=== PATIENT | female | born 1935 | race Caucasian/White ===

== ENCOUNTER → 2019-10-21 | Outpatient (CLI) | payer MEDICARE, BC | LOC: LAB 08:33 | DX: E11.9 Type 2 diabetes mellitus without complications (principal); I10 Essential (primary) hypertension; M54.9 Dorsalgia, unspecified; G89.29 Other chronic pain; R60.0 Localized edema ==

== ENCOUNTER → 2019-10-25 | Outpatient (CLI) | payer MEDICARE, BC | LOC: RAD 14:34 | DX: K56.41 Fecal impaction (principal); E11.9 Type 2 diabetes mellitus without complications; M79.641 Pain in right hand; R60.0 Localized edema ==

== ENCOUNTER → 2020-07-16 | Outpatient (CLI) | payer MEDICARE, BC ==
[2020-07-16 12:48] LABS: ALBUMIN 4.9 g/dL (3.4-4.8); POTASSIUM 4.5 mmol/L (3.5-5.1)
[2020-07-16 12:50] LABS: TOTAL PROTEIN 9.3 g/dL (6.2-8.1)
[2020-07-16 12:52] LABS: TOTAL BILIRUBIN 1.5 mg/dL (0.2-1.2)
== END ==
LOC: LAB 11:51
PROVIDERS: Family Medicine
DX: E11.9 Type 2 diabetes mellitus without complications (principal); R60.0 Localized edema; I10 Essential (primary) hypertension; E78.00 Pure hypercholesterolemia, unspecified

== ENCOUNTER → 2020-08-10 | Outpatient (CLI) | payer MEDICARE, BC | LOC: RAD 12:48 | DX: M51.36 Other intervertebral disc degeneration, lumbar region (principal); M47.816 Spondylosis without myelopathy or radiculopathy, lumbar region; M25.552 Pain in left hip ==

== ENCOUNTER → 2021-02-10 | Outpatient (CLI) | payer MEDICARE, BC | LOC: LAB 13:22 | DX: N39.0 Urinary tract infection, site not specified (principal) ==

== ENCOUNTER → 2021-02-12 | Outpatient (CLI) | payer MEDICARE, BC ==
[2021-02-12 15:08] LABS: URINE COLOR YELLOW
[2021-02-12 15:09] LABS: URINE APPEARANCE CLEAR
[2021-02-12 15:10] LABS: URINE BILIRUBIN NEGATIVE (NEGATIVE); URINE BLOOD TRACE (NEGATIVE); URINE GLUCOSE NEGATIVE (NEGATIVE); URINE KETONE NEGATIVE (NEGATIVE); URINE LEUKOCYTE ESTERASE TRACE (NEGATIVE); URINE MUCUS PRESENT (NOT PRESENT); URINE NITRATE NEGATIVE (NEGATIVE); URINE PROTEIN(semi-quant) TRACE mg/dL (NEGATIVE); URINE UROBILINOGEN NORMAL (NORMAL)
== END ==
LOC: LAB 14:12
PROVIDERS: Family Medicine
DX: N39.0 Urinary tract infection, site not specified (principal)

== ENCOUNTER → 2021-02-17 | Outpatient (CLI) | payer MEDICARE, BC ==
[2021-02-17 09:26] LABS: POTASSIUM 4.2 mmol/L (3.5-5.1)
[2021-02-17 09:27] LABS: ALBUMIN 4.1 g/dL (3.4-4.8)
[2021-02-17 09:28] LABS: CALCIUM 9.7 mg/dL (8.3-10.5)
[2021-02-17 09:29] LABS: TOTAL PROTEIN 7.6 g/dL (6.2-8.1)
[2021-02-17 09:31] LABS: TOTAL BILIRUBIN 1.4 mg/dL (0.2-1.2)
[2021-02-17 09:37] LABS: URINE APPEARANCE CLOUDY; URINE BILIRUBIN NEGATIVE (NEGATIVE); URINE COLOR YELLOW; URINE GLUCOSE NEGATIVE (NEGATIVE); URINE KETONE NEGATIVE (NEGATIVE); URINE PROTEIN(semi-quant) 2+ mg/dL (NEGATIVE)
[2021-02-17 09:38] LABS: URINE BLOOD 50 ery/uL (NEGATIVE); URINE LEUKOCYTE ESTERASE TRACE (NEGATIVE); URINE MUCUS PRESENT (NOT PRESENT); URINE NITRATE NEGATIVE (NEGATIVE); URINE UROBILINOGEN NORMAL (NORMAL)
== END ==
LOC: LAB 08:58
PROVIDERS: Family Medicine
DX: E11.9 Type 2 diabetes mellitus without complications (principal)

== ENCOUNTER → 2021-03-02 | Outpatient (CLI) | payer MEDICARE, BC | LOC: RAD 08:42 | DX: N18.31 Chronic kidney disease, stage 3a (principal); N20.0 Calculus of kidney; N28.1 Cyst of kidney, acquired ==

== ENCOUNTER → 2021-04-26 | Outpatient (CLI) | payer MEDICARE, BC ==
[2021-04-26 10:57] LABS: POTASSIUM 4.2 mmol/L (3.5-5.1)
[2021-04-26 10:58] LABS: CALCIUM 9.9 mg/dL (8.3-10.5)
[2021-04-26 11:05] LABS: URINE WBC >50 /hpf (0-3)
== END ==
LOC: LAB 10:13
PROVIDERS: Family Medicine
DX: N39.0 Urinary tract infection, site not specified (principal)

== ENCOUNTER → 2021-05-03 | Outpatient (CLI) | payer MEDICARE, BC ==
[2021-05-03 16:20] LABS: POTASSIUM 4.3 mmol/L (3.5-5.1)
[2021-05-03 16:52] LABS: URINE APPEARANCE HAZY; URINE BILIRUBIN 1+ (NEGATIVE); URINE BLOOD TRACE (NEGATIVE); URINE COLOR YELLOW; URINE GLUCOSE NEGATIVE (NEGATIVE); URINE KETONE NEGATIVE (NEGATIVE); URINE LEUKOCYTE ESTERASE TRACE (NEGATIVE); URINE MUCUS PRESENT (NOT PRESENT); URINE NITRATE POSITIVE (NEGATIVE); URINE PROTEIN(semi-quant) TRACE mg/dL (NEGATIVE); URINE UROBILINOGEN NORMAL (NORMAL)
== END ==
LOC: LAB 15:57
PROVIDERS: Family Medicine
DX: E11.22 Type 2 diabetes mellitus with diabetic chronic kidney disease (principal); N18.2 Chronic kidney disease, stage 2 (mild); N39.0 Urinary tract infection, site not specified

== ENCOUNTER → 2021-07-26 | Outpatient (CLI) | payer MEDICARE, BC ==
[2021-07-26 09:24] LABS: ALBUMIN 4.1 g/dL (3.4-4.8); POTASSIUM 3.9 mmol/L (3.5-5.1)
[2021-07-26 09:25] LABS: CALCIUM 10.3 mg/dL (8.3-10.5)
[2021-07-26 09:26] LABS: TOTAL PROTEIN 8.3 g/dL (6.2-8.1)
[2021-07-26 09:37] LABS: URINE APPEARANCE CLOUDY; URINE COLOR YELLOW
[2021-07-26 09:38] LABS: URINE BILIRUBIN NEGATIVE (NEGATIVE); URINE BLOOD TRACE (NEGATIVE); URINE GLUCOSE NEGATIVE (NEGATIVE); URINE KETONE NEGATIVE (NEGATIVE); URINE LEUKOCYTE ESTERASE 1+ (NEGATIVE); URINE MUCUS PRESENT (NOT PRESENT); URINE NITRATE POSITIVE (NEGATIVE); URINE PROTEIN(semi-quant) 1+ mg/dL (NEGATIVE); URINE UROBILINOGEN NORMAL (NORMAL); URINE WBC 31-50 /hpf (0-3)
== END ==
LOC: LAB 07:59
PROVIDERS: Family Medicine
DX: E11.22 Type 2 diabetes mellitus with diabetic chronic kidney disease (principal); N18.2 Chronic kidney disease, stage 2 (mild); N39.0 Urinary tract infection, site not specified

== ENCOUNTER → 2021-07-29 | Outpatient (CLI) | payer MEDICARE, BC ==
[2021-07-29 17:16] LABS: BASO # 0.11 K/mm3 (0.02-0.10); EOS # 0.29 K/mm3 (0.04-0.40); EOS % 2.6 % (1.0-5.0); HEMATOCRIT 46.3 % (37.0-47.0); HEMOGLOBIN 14.9 g/dL (12.5-16.0); LYMPH# 3.09 K/mm3 (1.50-4.00); MEAN CELL VOLUME 97 fl (78-100); MEAN CORPUSCULAR HEMOGLOBIN 31 pg (27-31); MEAN CORPUSCULAR HGB CONC 32 g/dL (33-37); MEAN PLATELET VOLUME 9.2 fl (7.4-10.4); MONO # 0.85 K/mm3 (0.20-0.80); NEU # 6.78 K/mm3 (1.40-6.50); PLATELET COUNT 307 K/mm3 (130-400); RED BLOOD COUNT 4.77 M/mm3 (4.10-5.30); RED CELL DISTRIBUTION WIDTH 12.5 % (11.5-14.5); WHITE BLOOD COUNT 11.1 K/mm3 (4.8-10.8)
== END ==
LOC: LAB 17:02
PROVIDERS: Family Medicine
DX: R22.9 Localized swelling, mass and lump, unspecified (principal)

== ENCOUNTER → 2021-08-19 | Outpatient (CLI) | payer MEDICARE, BC | LOC: LAB 12:37 | DX: N39.0 Urinary tract infection, site not specified (principal); R07.9 Chest pain, unspecified ==

== ENCOUNTER 2021-08-31 10:29 | Emergency (ER) | payer MEDICARE, BC ==
[~2021-08-31] VITALS: Ht 167.6 cm; Wt 95.5 kg
[2021-08-31] MEDS ORDERED: FUROSEMIDE40 MG PO (10:50)
[2021-08-31] MEDS ORDERED: CIPROFLOXACIN250 MG PO (10:50)
[2021-08-31] MEDS ORDERED: GLIMEPIRIDE4 MG PO (10:50)
[2021-08-31] MEDS ORDERED: LOSARTAN POTAS100 MG PO (10:51)
[2021-08-31] MEDS ORDERED: LEVEMIR FLEX100 U/ML SQ (10:51)
[2021-08-31] MEDS ORDERED: MELOXICAM15 MG PO (10:51)
[2021-08-31] MEDS ORDERED: METOPROLOL SUCC50 M1 PO (10:52)
[2021-08-31] MEDS ORDERED: ADALAT CC90 M1 PO (10:52)
[2021-08-31] MEDS ORDERED: POTASSIUM CHLO20 ME4 PO (10:53)
[2021-08-31] MEDS ORDERED: DESYREL50 MG PO (10:53)
[2021-08-31] MEDS ORDERED: ROSUVASTATIN CA20 MG PO (10:53)
[2021-08-31] MEDS ORDERED: TURMERIC538 MG PO (11:12)
[2021-08-31] MEDS ORDERED: PYRIDIUM100 M1 PO (11:12)
[2021-08-31] MEDS ORDERED: TYLENOL325 M1 PO (11:13)
[2021-08-31 11:50] LABS: BASO # 0.07 K/mm3 (0.02-0.10); EOS % 0.9 % (1.0-5.0); HEMATOCRIT 43.5 % (37.0-47.0); HEMOGLOBIN 14.1 g/dL (12.5-16.0); LYMPH# 1.17 K/mm3 (1.50-4.00); MEAN CELL VOLUME 96 fl (78-100); MEAN CORPUSCULAR HEMOGLOBIN 31 pg (27-31); MEAN CORPUSCULAR HGB CONC 32 g/dL (33-37); MEAN PLATELET VOLUME 9.8 fl (7.4-10.4); MONO # 0.68 K/mm3 (0.20-0.80); NEU # 9.63 K/mm3 (1.40-6.50); PLATELET COUNT 245 K/mm3 (130-400); RED BLOOD COUNT 4.53 M/mm3 (4.10-5.30); RED CELL DISTRIBUTION WIDTH 12.5 % (11.5-14.5); WHITE BLOOD COUNT 11.7 K/mm3 (4.8-10.8)
[2021-08-31 11:58] LABS: ALBUMIN 4.1 g/dL (3.4-4.8)
[2021-08-31 11:59] LABS: POTASSIUM 4.3 mmol/L (3.5-5.1)
[2021-08-31 12:00] LABS: CALCIUM 9.8 mg/dL (8.3-10.5)
[2021-08-31 12:01] LABS: TOTAL PROTEIN 7.9 g/dL (6.2-8.1)
[2021-08-31 12:03] LABS: PARTIAL THROMBOPLASTIN TIME 21.3 SECONDS (21.0-32.0); TOTAL BILIRUBIN 1.2 mg/dL (0.2-1.2)
[2021-08-31 12:16] LABS: TROPONIN-I 0.03 ng/mL (<0.030)
[2021-08-31 12:34] LABS: URINE APPEARANCE CLEAR; URINE BILIRUBIN NEGATIVE (NEGATIVE); URINE BLOOD NEGATIVE (NEGATIVE); URINE COLOR YELLOW; URINE KETONE NEGATIVE (NEGATIVE); URINE NITRATE NEGATIVE (NEGATIVE); URINE PROTEIN(semi-quant) 1+ mg/dL (NEGATIVE); URINE UROBILINOGEN NORMAL (NORMAL)
[2021-08-31 12:35] LABS: URINE LEUKOCYTE ESTERASE 1+ (NEGATIVE)
[2021-08-31 20:44] VITALS: BP 160/77
[2021-08-31] MEDS ORDERED: ZOLOFT 50MG50 MG PO (22:37)
== END 2021-08-31 20:44 | disposition other institution (70) ==
LOC: ED 10:29
PROVIDERS: Nurse Practitioner
DX: I21.4 Non-ST elevation (NSTEMI) myocardial infarction (principal); R74.8 Abnormal levels of other serum enzymes; I12.9 Hypertensive chronic kidney disease with stage 1 through stage 4 chronic kidney disease, or unspecified chronic kidney disease; N18.2 Chronic kidney disease, stage 2 (mild); E78.00 Pure hypercholesterolemia, unspecified; E11.22 Type 2 diabetes mellitus with diabetic chronic kidney disease; G89.29 Other chronic pain; M54.9 Dorsalgia, unspecified; Z79.4 Long term (current) use of insulin; Z79.84 Long term (current) use of oral hypoglycemic drugs; Z79.1 Long term (current) use of non-steroidal anti-inflammatories (NSAID); Z79.899 Other long term (current) drug therapy

== ENCOUNTER 2021-08-31 20:49 | Inpatient (IN) | payer MEDICARE, BC ==
[~2021-08-31] VITALS: Ht 167.6 cm; Wt 94.4 kg
[~2021-08-31 20:49] MED LIST: ADALAT CC90 M1 PO; CIPROFLOXACIN250 MG PO; DESYREL50 MG PO; FUROSEMIDE40 MG PO; GLIMEPIRIDE4 MG PO; LEVEMIR FLEX100 U/ML SQ; LOSARTAN POTAS100 MG PO; MELOXICAM15 MG PO; METOPROLOL SUCC50 M1 PO; POTASSIUM CHLO20 ME4 PO; PYRIDIUM100 M1 PO; ROSUVASTATIN CA20 MG PO; TURMERIC538 MG PO; TYLENOL325 M1 PO
--- NOTE | 2021-08-31 21:00 | NUR ---
PATIENT TRANSPORTED TO ROOM 304 FOR ACUTE ADMISSION FROM THE ER WITH CHEST PAIN, ELEVATED TROPONIN LEVELS AND NSTEMI AFTER ATTEMPTS TO TRANSFER FAILED DUE TO LACK OF OPEN BEDS. SHE IS BROUGHT DOWN BY WHEELCHAIR WITH TELEMETRY IN PLACE AND A PATENT 20 BRAXTON IVL IN HER RIGHT AC, PATIENT IS CHANGED INTO A GOWN AND ASSISTED IN GETTING INTO BED WITH STANDBY ASSIST AND HER CANE, PATIENT IS ALERT AND ORIENTED AND DENIES ANY FURTHER CHEST PAIN AT THIS TIME, PATIENT HAS A NITROGLYCERIN PATCH IN PLACE TO HER RIGHT ANTERIOR CHEST WALL, ASSESSMENT PERFORMED AND PATIENT ORIENTED TO ROOM, TUCKED INTO BED, SIDE RAILS X 2, BED ALARM ON AND CALL LIGHT WITHIN REACH, NORMAL SINUS RHYTHM ON THE MONITOR, WILL CONTINUE TO MONITOR CLOSELY
[2021-08-31 21:52] VITALS: BP 160/77
[2021-08-31] MEDS ORDERED: ZOLOFT 50MG50 MG PO (22:37)
[2021-08-31 23:27] LABS: HEMATOCRIT 41.8 % (37.0-47.0); HEMOGLOBIN 13.5 g/dL (12.5-16.0); MEAN PLATELET VOLUME 9.5 fl (7.4-10.4); RED BLOOD COUNT 4.36 M/mm3 (4.10-5.30); RED CELL DISTRIBUTION WIDTH 12.5 % (11.5-14.5); WHITE BLOOD COUNT 11.5 K/mm3 (4.8-10.8)
[2021-08-31 23:41] LABS: PARTIAL THROMBOPLASTIN TIME 21.5 SECONDS (21.0-32.0); PROTHROMBIN TIME 10.3 SECONDS (9.0-12.0)
[2021-09-01 02:00] VITALS: BP 144/79
[2021-09-01 05:22] VITALS: BP 138/73
[2021-09-01 06:24] LABS: BASO # 0.07 K/mm3 (0.02-0.10); EOS % 2.9 % (1.0-5.0); HEMATOCRIT 42.2 % (37.0-47.0); HEMOGLOBIN 13.8 g/dL (12.5-16.0); LYMPH# 3.07 K/mm3 (1.50-4.00); MEAN CELL VOLUME 96 fl (78-100); MEAN CORPUSCULAR HEMOGLOBIN 31 pg (27-31); MEAN CORPUSCULAR HGB CONC 33 g/dL (33-37); MEAN PLATELET VOLUME 9.3 fl (7.4-10.4); MONO # 0.75 K/mm3 (0.20-0.80); NEU # 6.12 K/mm3 (1.40-6.50); PLATELET COUNT 244 K/mm3 (130-400); RED BLOOD COUNT 4.41 M/mm3 (4.10-5.30); RED CELL DISTRIBUTION WIDTH 12.7 % (11.5-14.5); WHITE BLOOD COUNT 10.3 K/mm3 (4.8-10.8)
[2021-09-01 06:34] LABS: ALBUMIN 3.9 g/dL (3.4-4.8)
[2021-09-01 06:35] LABS: POTASSIUM 3.9 mmol/L (3.5-5.1)
[2021-09-01 06:36] LABS: CALCIUM 9.7 mg/dL (8.3-10.5)
[2021-09-01 06:37] LABS: TOTAL PROTEIN 7.3 g/dL (6.2-8.1)
[2021-09-01 06:39] LABS: TOTAL BILIRUBIN 1.3 mg/dL (0.2-1.2)
[2021-09-01 06:50] LABS: TROPONIN-I 0.66 ng/mL (<0.030)
--- NOTE | 2021-09-01 08:35 | NUR ---
Patient to CT scanner for CT chest.
--- NOTE | 2021-09-01 09:17 | NUR ---
Patient getting bedside echo. Provider in talking with patient
[2021-09-01 10:03] VITALS: BP 187/82
--- NOTE | 2021-09-01 10:19 | NUR ---
Clarified with Isaura that it is ok to draw HepXa at 1130 instead of 12.
[2021-09-01 14:08] VITALS: BP 167/79
--- NOTE | 2021-09-01 15:35 | NUR ---
DUE TO SEVERE THUNDERSTORM WARNING; PATIENT IS MOVED TO PACU FOR SAFETY WITH THIS NURSE. PATIENT IS IN WHEELCHAIR WITH IV HEPARIN INFUSING.
--- NOTE | 2021-09-01 17:02 | NUR ---
PATIENT MOVED BACK TO INPATIENT ROOM. NO INCIDENTS OCCURRED DURING THE EMERGENCY MOVE.
[2021-09-01 18:11] VITALS: BP 134/79
--- NOTE | 2021-09-01 19:10 | NUR ---
CURRENT PTT IS REPORTED 33.0, PER THE HEPARIN DRIP PROTOCOL, A 1000 UNIT BOLUS WILL BE GIVEN IV AND RATE OF DRIP INCREASED FROM 8 CC/HR TO 10.5 CC/HR AT THIS TIME, REPEAT LABS WILL BE DRAWN AT MIDNIGHT
[2021-09-01 22:15] VITALS: BP 132/66
[2021-09-02 00:44] LABS: PARTIAL THROMBOPLASTIN TIME 90.4 SECONDS (21.0-32.0); PROTHROMBIN TIME 10.4 SECONDS (9.0-12.0)
--- NOTE | 2021-09-02 00:45 | NUR ---
CURRENT PTT IS REPORTED 90.4, PER THE PROTOCOL, NO CHANGE IS MADE TO THE HEPARIN DRIP, RATE REMAINS AT 10.5 CC/HR AND LAB WILL BE REDRAWN AT 0600
[2021-09-02 01:20] VITALS: BP 154/79
--- NOTE | 2021-09-02 05:00 | NUR ---
PATIENT C/O BURNING WITH URINATION, UA COLLECTED AT THIS TIME AND SENT TO LAB, WILL CONSULT PROVIDER IN THE AM ABOUT POSSIBLE FURTHER ORDERS, PATIENT AGREEABLE WITH PLAN, PATIENT VOIDS WITHOUT DIFFICULTY AND IS TUCKED BACK INTO BED, DENIES ANY FURTHER NEEDS AT THIS TIME, BED ALARM REACTIVATED, CALL LIGHT WITHIN REACH, SIDE RAILS UP X 2,
[2021-09-02 05:59] VITALS: BP 161/73
[2021-09-02 06:24] LABS: BASO # 0.08 K/mm3 (0.02-0.10); EOS # 0.31 K/mm3 (0.04-0.40); EOS % 3.5 % (1.0-5.0); HEMATOCRIT 40.4 % (37.0-47.0); LYMPH# 2.22 K/mm3 (1.50-4.00); MEAN CELL VOLUME 96 fl (78-100); MEAN CORPUSCULAR HEMOGLOBIN 31 pg (27-31); MEAN CORPUSCULAR HGB CONC 32 g/dL (33-37); MEAN PLATELET VOLUME 9.5 fl (7.4-10.4); MONO # 0.74 K/mm3 (0.20-0.80); NEU # 5.59 K/mm3 (1.40-6.50); PLATELET COUNT 219 K/mm3 (130-400); RED BLOOD COUNT 4.22 M/mm3 (4.10-5.30); RED CELL DISTRIBUTION WIDTH 12.8 % (11.5-14.5)
[2021-09-02 06:31] LABS: ALBUMIN 3.6 g/dL (3.4-4.8); POTASSIUM 3.8 mmol/L (3.5-5.1)
[2021-09-02 06:32] LABS: CALCIUM 9.4 mg/dL (8.3-10.5)
[2021-09-02 06:33] LABS: TOTAL PROTEIN 6.9 g/dL (6.2-8.1)
[2021-09-02 06:35] LABS: PROTHROMBIN TIME 10.4 SECONDS (9.0-12.0); TOTAL BILIRUBIN 1.2 mg/dL (0.2-1.2)
[2021-09-02 06:37] LABS: PARTIAL THROMBOPLASTIN TIME 142.4 SECONDS (21.0-32.0)
--- NOTE | 2021-09-02 06:45 | NUR ---
LAB REPORTS CRITICAL HIGH VALUE FOR PTT OF 142.4, IV HEPARIN DRIP STOPPED AT THIS TIME FOR 1 HOUR, THEN IT IS TO BE RESTARTED AT A NEW RATE OF 8 ML/HR, PATIENT INFORMED OF PLAN, AGREEABLE
[2021-09-02 06:46] LABS: TROPONIN-I 0.3 ng/mL (<0.030)
--- NOTE | 2021-09-02 07:45 | NUR ---
Restart heparin gtt at 8 ml/hr and recheck PTT at 1200, per ELMA Holland.
--- NOTE | 2021-09-02 09:41 | NUR ---
Patient resting in chair visiting with family on the cellphone. A&Ox4, no c/o pain or discomfort. Reports she slept well last night. Enjoying her stay at [facility]. Second IV started at this time, per orders. Chair in locked position. Call light within reach.
[2021-09-02 10:20] VITALS: BP 160/81
[2021-09-02 11:26] LABS: PARTIAL THROMBOPLASTIN TIME 25.8 SECONDS (21.0-32.0); PROTHROMBIN TIME 10.9 SECONDS (9.0-12.0)
--- NOTE | 2021-09-02 12:00 | NUR ---
Bolus of 1,000 units of heparin and increase gtt rate 2.5 ml/hr for a total of 10.5 ml/hr and recheck in 6 hours. PTT is 25.8 at 1200.
[2021-09-02 14:09] VITALS: BP 151/76
--- NOTE | 2021-09-02 16:27 | NUR ---
Patient c/o chest tightness, started a few minutes ago. VSS, see chart. EKG complete. Dr. Rascon notified. HOB elevated 30 degrees. Heparin gtt at 10.5 ml/hr. Nitro patch on right upper chest. A&Ox4, RA, visiting with staff.
--- NOTE | 2021-09-02 17:00 | NUR ---
Check PTT at this time. PTT 114.8. Findings reported to Dr. Rascon. Decrease gtt to 9 ml/hr and recheck in [address] Rascon.
[2021-09-02 17:05] LABS: PROTHROMBIN TIME 10.2 SECONDS (9.0-12.0)
[2021-09-02 17:19] LABS: PARTIAL THROMBOPLASTIN TIME 114.8 SECONDS (21.0-32.0)
[2021-09-02 17:38] VITALS: BP 148/74
--- NOTE | 2021-09-02 17:42 | NUR ---
OMIT previous order for heparin gtt. Continue gtt at 10.5 ml/hr and recheck PTT in [address] Rascon
--- NOTE | 2021-09-02 18:30 | NUR ---
MISSION CONTROL UPDATED ON PT CHANGES AND TO SEARCH FOR TOOL STORAGE ATTENDANT PER DR LANDRUM REQUEST
--- NOTE | 2021-09-02 19:00 | NUR ---
Report received from Aliza TALAMANTES.
--- NOTE | 2021-09-02 19:30 | NUR ---
Dr. Rascon into visit with patient about transfer to [facility] ICU. Transfer paper work signed by patient. Patient alert and oriented x 4. Denies pain at this time. Pleasant and visits readily with staff. [facility] called.
--- NOTE | 2021-09-02 19:36 | NUR ---
Report given to Shawn TALAMANTES.
--- NOTE | 2021-09-02 20:00 | NUR ---
Copy of labs, EKG's, progress notes, radiology, H&P,vitals,meds and face sheet sent with EMS.
--- NOTE | 2021-09-02 20:00 | NUR ---
Accu check 120 and levemier 8 units SQ and lipitor reviewed and given. Patient denies pain. [facility] arrived, patient up to the bathroom and then rests back on EMS gernie. Patient belongings of clothes, robe, cell phone and phone liner man given to EMS. Transfer paperwork and face sheet given to EMS and patient transferred to [facility] ICU room HC 906. Heparin gtt continued and 10.5 mls/hr.
== END 2021-09-02 20:05 | disposition short-term general hospital (02) | DRG 282 ==
LOC: MED/SURG 20:49
PROVIDERS: Physician Assistant; ADMIT Nurse Practitioner
DX: I21.4 Non-ST elevation (NSTEMI) myocardial infarction (principal); I12.9 Hypertensive chronic kidney disease with stage 1 through stage 4 chronic kidney disease, or unspecified chronic kidney disease; N18.2 Chronic kidney disease, stage 2 (mild); E11.22 Type 2 diabetes mellitus with diabetic chronic kidney disease; E55.9 Vitamin D deficiency, unspecified; G89.29 Other chronic pain; M54.9 Dorsalgia, unspecified; E78.5 Hyperlipidemia, unspecified; Z79.4 Long term (current) use of insulin; Z88.2 Allergy status to sulfonamides; Z88.1 Allergy status to other antibiotic agents; Z88.5 Allergy status to narcotic agent
CPT/HCPCS: C9113; J1644; J1815; Q9967

== ENCOUNTER → 2021-09-08 | Outpatient (CLI) | payer MEDICARE, BC ==
[~2021-09-08] MED LIST changes: +ZOLOFT 50MG50 MG PO
[2021-09-08 14:56] LABS: ALBUMIN 4.3 g/dL (3.4-4.8); POTASSIUM 4.9 mmol/L (3.5-5.1)
[2021-09-08 14:57] LABS: CALCIUM 10.1 mg/dL (8.3-10.5)
[2021-09-08 14:58] LABS: TOTAL PROTEIN 7.9 g/dL (6.2-8.1)
[2021-09-08 15:00] LABS: TOTAL BILIRUBIN 1.3 mg/dL (0.2-1.2)
== END ==
LOC: LAB 11:35
PROVIDERS: Family Medicine
DX: R53.83 Other fatigue (principal)

== ENCOUNTER → 2021-09-21 | Outpatient (CLI) | payer MEDICARE, BC ==
[2021-09-21 09:11] LABS: BASO # 0.07 K/mm3 (0.02-0.10); EOS # 0.18 K/mm3 (0.04-0.40); EOS % 2.1 % (1.0-5.0); HEMATOCRIT 40.7 % (37.0-47.0); HEMOGLOBIN 13.4 g/dL (12.5-16.0); MEAN CELL VOLUME 94 fl (78-100); MEAN CORPUSCULAR HEMOGLOBIN 31 pg (27-31); MEAN CORPUSCULAR HGB CONC 33 g/dL (33-37); MEAN PLATELET VOLUME 9.8 fl (7.4-10.4); MONO # 0.57 K/mm3 (0.20-0.80); NEU # 6.25 K/mm3 (1.40-6.50); PLATELET COUNT 299 K/mm3 (130-400); RED BLOOD COUNT 4.34 M/mm3 (4.10-5.30); RED CELL DISTRIBUTION WIDTH 12.3 % (11.5-14.5); WHITE BLOOD COUNT 8.7 K/mm3 (4.8-10.8)
[2021-09-21 10:40] LABS: ERYTHROCYTE SEDIMENTATION RATE 60 mm/hr (0-30)
== END ==
LOC: RAD 08:41
PROVIDERS: Family Medicine
DX: R22.9 Localized swelling, mass and lump, unspecified (principal)

== ENCOUNTER → 2021-09-23 | Outpatient (CLI) | payer MEDICARE, BC | LOC: RAD 11:05 | DX: K11.8 Other diseases of salivary glands (principal); E07.9 Disorder of thyroid, unspecified; W19.XXXA Unspecified fall, initial encounter | CPT/HCPCS: Q9967 ==

== ENCOUNTER → 2021-10-12 | Outpatient (CLI) | payer MEDICARE, BC ==
[2021-10-12 15:11] LABS: CALCIUM 9.8 mg/dL (8.3-10.5)
== END ==
LOC: LAB 14:46
PROVIDERS: Family Medicine
DX: E55.9 Vitamin D deficiency, unspecified (principal)

== ENCOUNTER → 2021-10-15 | Outpatient (CLI) | payer MEDICARE, BC | LOC: LAB 10:51 | DX: E11.22 Type 2 diabetes mellitus with diabetic chronic kidney disease (principal); N18.2 Chronic kidney disease, stage 2 (mild); I25.119 Atherosclerotic heart disease of native coronary artery with unspecified angina pectoris ==

== ENCOUNTER → 2021-10-29 | Outpatient (CLI) | payer MEDICARE, BC | LOC: LAB 13:25 | DX: E04.2 Nontoxic multinodular goiter (principal) ==

== ENCOUNTER → 2021-11-04 | Outpatient (CLI) | payer MEDICARE, BC | LOC: LAB 12:20 | DX: I10 Essential (primary) hypertension (principal); N39.0 Urinary tract infection, site not specified; E11.9 Type 2 diabetes mellitus without complications; I25.10 Atherosclerotic heart disease of native coronary artery without angina pectoris; R30.9 Painful micturition, unspecified; Z95.5 Presence of coronary angioplasty implant and graft ==

== ENCOUNTER 2021-11-19 13:00 | Outpatient (RCR) | payer MEDICARE, BC | END 2021-12-16 | disposition home or self-care (01) | LOC: CARDREHAB | DX: Z48.812 Encounter for surgical aftercare following surgery on the circulatory system (principal); Z98.61 Coronary angioplasty status; Z95.2 Presence of prosthetic heart valve ==

== ENCOUNTER → 2021-12-15 | Outpatient (CLI) | payer MEDICARE, BC ==
[2021-12-15 16:32] LABS: HEMATOCRIT 41.9 % (37.0-47.0); HEMOGLOBIN 13.5 g/dL (12.5-16.0); MEAN PLATELET VOLUME 9.3 fl (7.4-10.4); RED BLOOD COUNT 4.54 M/mm3 (4.10-5.30); RED CELL DISTRIBUTION WIDTH 12.8 % (11.5-14.5); WHITE BLOOD COUNT 9.3 K/mm3 (4.8-10.8)
[2021-12-15 16:46] LABS: POTASSIUM 3.7 mmol/L (3.5-5.1)
[2021-12-15 16:47] LABS: CALCIUM 10.1 mg/dL (8.3-10.5)
== END ==
LOC: LAB 16:12
PROVIDERS: Family Medicine
DX: I10 Essential (primary) hypertension (principal); R53.83 Other fatigue; Z95.5 Presence of coronary angioplasty implant and graft

== ENCOUNTER 2022-01-17 08:00 | Outpatient (RCR) | payer MEDICARE, BC | END 2022-02-15 | disposition home or self-care (01) | LOC: CARDREHAB | DX: Z48.812 Encounter for surgical aftercare following surgery on the circulatory system (principal); Z95.5 Presence of coronary angioplasty implant and graft ==

== ENCOUNTER 2022-01-18 12:19 | Emergency (ER) | payer MEDICARE, BC ==
[~2022-01-18] VITALS: Ht 167.6 cm; Wt 98.2 kg
[2022-01-18 14:09] LABS: BASO # 0.04 K/mm3 (0.02-0.10); EOS # 0.18 K/mm3 (0.04-0.40); EOS % 1.8 % (1.0-5.0); HEMATOCRIT 43.6 % (37.0-47.0); HEMOGLOBIN 14.2 g/dL (12.5-16.0); LYMPH# 1.58 K/mm3 (1.50-4.00); MEAN CELL VOLUME 91 fl (78-100); MEAN CORPUSCULAR HEMOGLOBIN 30 pg (27-31); MEAN CORPUSCULAR HGB CONC 33 g/dL (33-37); MEAN PLATELET VOLUME 9.2 fl (7.4-10.4); MONO # 0.67 K/mm3 (0.20-0.80); NEU # 7.29 K/mm3 (1.40-6.50); PLATELET COUNT 225 K/mm3 (130-400); RED CELL DISTRIBUTION WIDTH 13.1 % (11.5-14.5); WHITE BLOOD COUNT 9.8 K/mm3 (4.8-10.8)
[2022-01-18 14:15] LABS: ALBUMIN 4.1 g/dL (3.4-4.8); POTASSIUM 3.4 mmol/L (3.5-5.1); SODIUM 140 mmol/L (136-145)
[2022-01-18 14:16] LABS: CALCIUM 10.1 mg/dL (8.3-10.5)
[2022-01-18 14:17] LABS: PROTHROMBIN TIME 10.5 SECONDS (9.0-12.0)
[2022-01-18 14:18] LABS: GLUCOSE 188 mg/dL (65-105); TOTAL PROTEIN 7.7 g/dL (6.2-8.1)
[2022-01-18 14:19] LABS: CARBON DIOXIDE 25 mmol/L (23-31); TOTAL BILIRUBIN 1.5 mg/dL (0.2-1.2)
[2022-01-18 14:22] LABS: URINE WBC 0 /hpf (0-3)
[2022-01-18 14:23] LABS: AST-SGOT 19 U/L (5-34)
[2022-01-18 14:24] LABS: ALT/SGPT 28 U/L (0-55)
[2022-01-18 14:31] LABS: TROPONIN-I < 0.030 ng/mL (<0.030)
[2022-01-18 14:41] LABS: URINE APPEARANCE CLEAR; URINE BILIRUBIN NEGATIVE (NEGATIVE); URINE BLOOD TRACE (NEGATIVE); URINE COLOR YELLOW; URINE GLUCOSE NEGATIVE (NEGATIVE); URINE KETONE NEGATIVE (NEGATIVE); URINE LEUKOCYTE ESTERASE NEGATIVE (NEGATIVE); URINE MUCUS PRESENT (NOT PRESENT); URINE NITRATE NEGATIVE (NEGATIVE); URINE PROTEIN(semi-quant) TRACE (NEGATIVE); URINE UROBILINOGEN NORMAL (NORMAL)
[2022-01-18 15:10] VITALS: BP 172/78
== END 2022-01-18 15:10 | disposition home or self-care (01) ==
LOC: ED 12:19
PROVIDERS: Physician Assistant
DX: S00.83XA Contusion of other part of head, initial encounter (principal); M25.512 Pain in left shoulder; E87.6 Hypokalemia; E04.9 Nontoxic goiter, unspecified; Z91.14 Patient's other noncompliance with medication regimen; W01.198A Fall on same level from slipping, tripping and stumbling with subsequent striking against other object, initial encounter
CPT/HCPCS: 90715; J3010

== ENCOUNTER → 2022-01-26 | Outpatient (CLI) | payer MEDICARE, BC ==
[2022-01-26 10:03] LABS: POTASSIUM 3.9 mmol/L (3.5-5.1)
[2022-01-26 10:04] LABS: CALCIUM 9.9 mg/dL (8.3-10.5)
== END ==
LOC: LAB 09:41
PROVIDERS: Family Medicine
DX: I10 Essential (primary) hypertension (principal)

== ENCOUNTER 2022-02-16 10:00 | Outpatient (RCR) | payer MEDICARE, BC | END 2022-03-17 | disposition home or self-care (01) | LOC: CARDREHAB | DX: Z48.812 Encounter for surgical aftercare following surgery on the circulatory system (principal); Z95.5 Presence of coronary angioplasty implant and graft; Z95.2 Presence of prosthetic heart valve; I25.2 Old myocardial infarction ==

== ENCOUNTER → 2022-02-23 | Outpatient (CLI) | payer MEDICARE, BC ==
[2022-02-23 08:23] LABS: POTASSIUM 4.1 mmol/L (3.5-5.1)
[2022-02-23 08:24] LABS: CALCIUM 9.9 mg/dL (8.3-10.5)
== END ==
LOC: LAB 07:50
PROVIDERS: Internal Medicine Nephrology
DX: N18.32 Chronic kidney disease, stage 3b (principal); R80.9 Proteinuria, unspecified

== ENCOUNTER 2022-03-29 15:00 | Outpatient (RCR) | payer MEDICARE, BC | END 2022-04-17 | disposition home or self-care (01) | LOC: CARDREHAB | DX: Z48.812 Encounter for surgical aftercare following surgery on the circulatory system (principal); Z95.2 Presence of prosthetic heart valve; Z95.5 Presence of coronary angioplasty implant and graft; I25.2 Old myocardial infarction ==

== ENCOUNTER → 2022-04-01 | Outpatient (CLI) | payer MEDICARE, BC ==
[2022-04-01 16:39] LABS: PH-URINE 5.5 (5.0 - 8.0); URINE APPEARANCE HAZY; URINE BILIRUBIN NEGATIVE (NEGATIVE); URINE BLOOD NEGATIVE (NEGATIVE); URINE COLOR YELLOW; URINE GLUCOSE NEGATIVE (NEGATIVE); URINE KETONE NEGATIVE (NEGATIVE); URINE NITRATE NEGATIVE (NEGATIVE); URINE PROTEIN(semi-quant) TRACE (NEGATIVE); URINE UROBILINOGEN NORMAL (NORMAL)
[2022-04-01 16:40] LABS: URINE LEUKOCYTE ESTERASE TRACE (NEGATIVE)
== END ==
LOC: LAB 14:37
PROVIDERS: Family Medicine
DX: I12.9 Hypertensive chronic kidney disease with stage 1 through stage 4 chronic kidney disease, or unspecified chronic kidney disease (principal); E11.22 Type 2 diabetes mellitus with diabetic chronic kidney disease; N18.2 Chronic kidney disease, stage 2 (mild); I25.119 Atherosclerotic heart disease of native coronary artery with unspecified angina pectoris

== ENCOUNTER 2022-04-19 08:02 | Outpatient (RCR) | payer MEDICARE, BC | END 2022-05-18 | disposition home or self-care (01) | LOC: CARDREHAB | DX: Z48.812 Encounter for surgical aftercare following surgery on the circulatory system (principal); Z95.5 Presence of coronary angioplasty implant and graft; I25.2 Old myocardial infarction ==

== ENCOUNTER → 2022-05-11 | Outpatient (CLI) | payer MEDICARE, BC ==
[2022-05-11 10:24] LABS: ALBUMIN 3.9 g/dL (3.4-4.8); POTASSIUM 4.1 mmol/L (3.5-5.1)
[2022-05-11 10:25] LABS: CALCIUM 10.1 mg/dL (8.3-10.5)
[2022-05-11 10:26] LABS: TOTAL PROTEIN 7.5 g/dL (6.2-8.1)
[2022-05-11 10:28] LABS: TOTAL BILIRUBIN 1.5 mg/dL (0.2-1.2)
[2022-05-11 10:57] LABS: PH-URINE 5.5 (5.0 - 8.0); URINE APPEARANCE CLOUDY; URINE BILIRUBIN NEGATIVE (NEGATIVE); URINE BLOOD TRACE (NEGATIVE); URINE COLOR YELLOW; URINE KETONE NEGATIVE (NEGATIVE); URINE LEUKOCYTE ESTERASE 2+ (NEGATIVE); URINE NITRATE POSITIVE (NEGATIVE); URINE PROTEIN(semi-quant) NEGATIVE (NEGATIVE); URINE UROBILINOGEN NORMAL (NORMAL); URINE WBC 31-50 /hpf (0-3)
== END ==
LOC: LAB 09:40
PROVIDERS: Family Medicine
DX: I25.119 Atherosclerotic heart disease of native coronary artery with unspecified angina pectoris (principal); N18.2 Chronic kidney disease, stage 2 (mild); E11.9 Type 2 diabetes mellitus without complications; Z87.442 Personal history of urinary calculi

== ENCOUNTER → 2022-05-20 | Outpatient (CLI) | payer MEDICARE, BC ==
[2022-05-20 08:59] LABS: URINE APPEARANCE CLEAR; URINE COLOR YELLOW; URINE PROTEIN(semi-quant) NEGATIVE (NEGATIVE)
[2022-05-20 09:00] LABS: URINE BILIRUBIN NEGATIVE (NEGATIVE); URINE BLOOD NEGATIVE (NEGATIVE); URINE KETONE NEGATIVE (NEGATIVE); URINE LEUKOCYTE ESTERASE NEGATIVE (NEGATIVE); URINE NITRATE NEGATIVE (NEGATIVE); URINE UROBILINOGEN NORMAL (NORMAL); URINE WBC 0-1 /hpf (0-3)
== END ==
LOC: LAB 05-19 09:35
PROVIDERS: Family Medicine
DX: N39.0 Urinary tract infection, site not specified (principal)

== ENCOUNTER → 2022-05-25 | Outpatient (CLI) | payer MEDICARE, BC | LOC: LAB 13:51 | DX: N20.0 Calculus of kidney (principal); E11.9 Type 2 diabetes mellitus without complications; N18.2 Chronic kidney disease, stage 2 (mild); I25.119 Atherosclerotic heart disease of native coronary artery with unspecified angina pectoris ==

== ENCOUNTER → 2022-07-19 | Outpatient (CLI) | payer MEDICARE, BC | LOC: LAB 09:12 | DX: I12.9 Hypertensive chronic kidney disease with stage 1 through stage 4 chronic kidney disease, or unspecified chronic kidney disease (principal); N18.2 Chronic kidney disease, stage 2 (mild); E11.22 Type 2 diabetes mellitus with diabetic chronic kidney disease; Z95.5 Presence of coronary angioplasty implant and graft; I25.119 Atherosclerotic heart disease of native coronary artery with unspecified angina pectoris ==

== ENCOUNTER → 2022-10-31 | Outpatient (CLI) | payer MEDICARE, BC ==
[2022-10-31 08:11] LABS: POTASSIUM 4.1 mmol/L (3.5-5.1)
[2022-10-31 08:12] LABS: CALCIUM 10.2 mg/dL (8.3-10.5)
== END ==
LOC: LAB 07:49
PROVIDERS: Family Medicine
DX: E87.6 Hypokalemia (principal)

== ENCOUNTER → 2022-11-11 | Outpatient (CLI) | payer MEDICARE, BC | LOC: LAB 11:59 | DX: J06.9 Acute upper respiratory infection, unspecified (principal) ==

== ENCOUNTER → 2022-12-22 | Outpatient (CLI) | payer MEDICARE, BC ==
[2022-12-22 10:52] LABS: URINE APPEARANCE CLEAR; URINE BILIRUBIN NEGATIVE (NEGATIVE); URINE BLOOD TRACE (NEGATIVE); URINE COLOR YELLOW; URINE KETONE NEGATIVE (NEGATIVE); URINE LEUKOCYTE ESTERASE 1+ (NEGATIVE); URINE MUCUS PRESENT (NOT PRESENT); URINE NITRATE NEGATIVE (NEGATIVE); URINE PROTEIN(semi-quant) TRACE (NEGATIVE); URINE UROBILINOGEN NORMAL (NORMAL)
== END ==
LOC: LAB 09:51
PROVIDERS: Family Medicine
DX: N39.0 Urinary tract infection, site not specified (principal)

== ENCOUNTER 2023-04-20 09:30 | Outpatient (RCR) | payer MEDICARE, BC ==
[~2023-04-20 09:30] MED LIST changes: +BENZONATATE100 M2 PO; +CARVEDILOL25 MG PO; +COENZYME Q10100 M1 PO; +ESCITALOPRAM10 MG PO; +GLUCOSAMINE CO1 EAC1 PO; +HYDROCHLOROTH12.5 M2 PO; +ISOSORBIDE MONO60 M2 PO; +JARDIANCE25 MG PO; +MIRALAX17 GM PO; +NORVASC 10MG10 MG PO; +ST. JOSEPH ASPI81 MG PO; +THERA D PO
== END 2023-05-18 | disposition home or self-care (01) ==
LOC: PT
DX: M25.552 Pain in left hip (principal)

== ENCOUNTER → 2023-07-19 | Outpatient (CLI) | payer MEDICARE, BC ==
[2023-07-19 11:12] LABS: CALCIUM 10.2 mg/dL (8.3-10.5)
== END ==
LOC: LAB 10:39
PROVIDERS: Family Medicine
DX: I12.9 Hypertensive chronic kidney disease with stage 1 through stage 4 chronic kidney disease, or unspecified chronic kidney disease (principal); N18.2 Chronic kidney disease, stage 2 (mild); E11.22 Type 2 diabetes mellitus with diabetic chronic kidney disease; I25.119 Atherosclerotic heart disease of native coronary artery with unspecified angina pectoris; E55.9 Vitamin D deficiency, unspecified; F33.42 Major depressive disorder, recurrent, in full remission; F03.B0 Unspecified dementia, moderate, without behavioral disturbance, psychotic disturbance, mood disturbance, and anxiety

== ENCOUNTER → 2023-10-09 | Outpatient (CLI) | payer MEDICARE, BC ==
[2023-10-09 09:12] LABS: URINE APPEARANCE CLEAR (CLEAR); URINE BILIRUBIN NEGATIVE (NEGATIVE); URINE BLOOD TRACE-INTACT (NEGATIVE); URINE COLOR YELLOW (YELLOW); URINE GLUCOSE NEGATIVE (NEGATIVE); URINE KETONE NEGATIVE (NEGATIVE); URINE LEUKOCYTE ESTERASE NEGATIVE (NEGATIVE); URINE NITRATE NEGATIVE (NEGATIVE); URINE PROTEIN(semi-quant) NEGATIVE (NEGATIVE)
[2023-10-09 09:13] LABS: URINE WBC 31-50 /hpf (0-3)
== END ==
LOC: LAB 08:50
PROVIDERS: Family Medicine
DX: R30.0 Dysuria (principal)

== ENCOUNTER → 2023-10-25 | Outpatient (CLI) | payer MEDICARE, BC ==
[2023-10-25 17:50] LABS: CALCIUM 10.1 mg/dL (8.3-10.5)
== END ==
LOC: LAB 16:47
PROVIDERS: Family Medicine
DX: I25.119 Atherosclerotic heart disease of native coronary artery with unspecified angina pectoris (principal); E11.22 Type 2 diabetes mellitus with diabetic chronic kidney disease; N18.2 Chronic kidney disease, stage 2 (mild); E55.9 Vitamin D deficiency, unspecified

== ENCOUNTER → 2023-10-30 | Outpatient (CLI) | payer MEDICARE, BC ==
[2023-10-30 16:33] LABS: URINE APPEARANCE CLOUDY (CLEAR); URINE COLOR YELLOW (YELLOW)
[2023-10-30 16:34] LABS: URINE BILIRUBIN NEGATIVE (NEGATIVE); URINE GLUCOSE 2+ (NEGATIVE); URINE KETONE NEGATIVE (NEGATIVE); URINE NITRATE NEGATIVE (NEGATIVE); URINE PROTEIN(semi-quant) NEGATIVE (NEGATIVE)
[2023-10-30 16:35] LABS: URINE BLOOD 1+ (NEGATIVE); URINE LEUKOCYTE ESTERASE NEGATIVE (NEGATIVE); URINE WBC 31-50 /hpf (0-3)
== END ==
LOC: LAB 15:43
PROVIDERS: Family Medicine
DX: R30.0 Dysuria (principal); R53.83 Other fatigue

== ENCOUNTER → 2024-01-23 | Outpatient (CLI) | payer MEDICARE, BC | LOC: AMSURD 13:06 | DX: I48.19 Other persistent atrial fibrillation (principal) ==

== ENCOUNTER → 2024-01-25 | Outpatient (CLI) | payer MEDICARE, BC ==
[2024-01-25 17:22] LABS: CALCIUM 10.6 mg/dL (8.3-10.5)
== END ==
LOC: LAB 16:51
PROVIDERS: Family Medicine
DX: I25.119 Atherosclerotic heart disease of native coronary artery with unspecified angina pectoris (principal); I12.9 Hypertensive chronic kidney disease with stage 1 through stage 4 chronic kidney disease, or unspecified chronic kidney disease; N18.2 Chronic kidney disease, stage 2 (mild); E11.9 Type 2 diabetes mellitus without complications; E55.9 Vitamin D deficiency, unspecified; Z95.5 Presence of coronary angioplasty implant and graft; R32 Unspecified urinary incontinence

== ENCOUNTER → 2024-01-26 | Outpatient (CLI) | payer MEDICARE, BC ==
[2024-01-26 14:36] LABS: PH-URINE 6.5 (5.0 - 8.0); URINE APPEARANCE CLOUDY (CLEAR); URINE BILIRUBIN NEGATIVE (NEGATIVE); URINE COLOR YELLOW (YELLOW); URINE GLUCOSE 2+ (NEGATIVE); URINE KETONE NEGATIVE (NEGATIVE); URINE PROTEIN(semi-quant) NEGATIVE (NEGATIVE)
[2024-01-26 14:37] LABS: URINE BLOOD TRACE-INTACT (NEGATIVE); URINE LEUKOCYTE ESTERASE NEGATIVE (NEGATIVE); URINE NITRATE NEGATIVE (NEGATIVE); URINE WBC 31-50 /hpf (0-3)
[2024-03-01 15:37] LABS: CREATININE OTHER SOURCE 51.58
== END ==
LOC: LAB 13:51
PROVIDERS: Family Medicine
DX: R32 Unspecified urinary incontinence (principal); I10 Essential (primary) hypertension; I25.10 Atherosclerotic heart disease of native coronary artery without angina pectoris; Z95.5 Presence of coronary angioplasty implant and graft

== ENCOUNTER 2024-02-01 17:15 | Emergency (ER) | payer MEDICARE, BC ==
[~2024-02-01 17:15] MED LIST changes: +Amoxicillin/Clavulanate K+ 875/125 MG TAB PO ONE; +traMADol 50 MG TAB PO ONE
== END 2024-02-01 19:38 | disposition home or self-care (01) ==
LOC: ED 17:15
DX: S39.92XA Unspecified injury of lower back, initial encounter (principal); J32.9 Chronic sinusitis, unspecified; W19.XXXA Unspecified fall, initial encounter

== ENCOUNTER → 2024-02-19 | Outpatient (REF) | payer MEDICARE, BC ==
[~2024-02-19] MED LIST changes: -Amoxicillin/Clavulanate K+ 875/125 MG TAB PO ONE; -traMADol 50 MG TAB PO ONE
[2024-04-08 01:42] LABS: URINE APPEARANCE SLIGHTLY CLOUDY (CLEAR); URINE COLOR YELLOW (YELLOW)
[2024-04-08 01:43] LABS: URINE BILIRUBIN NEGATIVE (NEGATIVE); URINE BLOOD NEGATIVE (NEGATIVE); URINE GLUCOSE 2+ (NEGATIVE); URINE KETONE NEGATIVE (NEGATIVE); URINE LEUKOCYTE ESTERASE TRACE (NEGATIVE); URINE NITRATE NEGATIVE (NEGATIVE); URINE PROTEIN(semi-quant) NEGATIVE (NEGATIVE); URINE WBC >50 /hpf (0-3)
== END ==
LOC: LAB 11:46
PROVIDERS: Family Medicine
DX: R30.0 Dysuria (principal)

== ENCOUNTER → 2024-02-23 | Outpatient (CLI) | payer MEDICARE, BC ==
[~2024-02-23] MED LIST changes: +AMIODARONE HCL100 MG PO; +AMOXICILLIN AND1 TA2 PO; +ELIQUIS5 MG PO; +LEVEMIR100 U/M1 SQ; +TRULICITY0.75 MG/0. SC; +WOMENS MULTI VITAMIN PO
[2024-04-16 01:50] LABS: ALBUMIN 3.7 g/dL (3.4-4.8); CALCIUM 10.1 mg/dL (8.3-10.5)
== END ==
LOC: LAB 15:27
PROVIDERS: Internal Medicine Nephrology
DX: E11.21 Type 2 diabetes mellitus with diabetic nephropathy (principal); N18.32 Chronic kidney disease, stage 3b; R80.9 Proteinuria, unspecified

== ENCOUNTER → 2024-02-24 | Outpatient (CLI) | payer MEDICARE, BC ==
[2024-04-16 10:41] LABS: CREATININE OTHER SOURCE AMS
== END ==
LOC: LAB 09:00
PROVIDERS: Internal Medicine Nephrology
DX: E11.21 Type 2 diabetes mellitus with diabetic nephropathy (principal); E11.22 Type 2 diabetes mellitus with diabetic chronic kidney disease; N18.32 Chronic kidney disease, stage 3b

== ENCOUNTER → 2024-03-14 | Outpatient (CLI) | payer MEDICARE, BC ==
[~2024-03-14] MED LIST changes: -AMIODARONE HCL100 MG PO; -AMOXICILLIN AND1 TA2 PO; -ELIQUIS5 MG PO; -LEVEMIR100 U/M1 SQ; -TRULICITY0.75 MG/0. SC; -WOMENS MULTI VITAMIN PO
[2024-03-14 13:32] LABS: URINE APPEARANCE CLEAR (CLEAR); URINE BILIRUBIN NEGATIVE (NEGATIVE); URINE COLOR YELLOW (YELLOW); URINE GLUCOSE 2+ (NEGATIVE); URINE KETONE NEGATIVE (NEGATIVE); URINE PROTEIN(semi-quant) NEGATIVE (NEGATIVE)
[2024-03-14 13:33] LABS: URINE BLOOD NEGATIVE (NEGATIVE); URINE LEUKOCYTE ESTERASE NEGATIVE (NEGATIVE); URINE NITRATE NEGATIVE (NEGATIVE)
== END ==
LOC: LAB 12:38
PROVIDERS: Family Medicine
DX: R30.0 Dysuria (principal)

== ENCOUNTER → 2024-07-04 | Outpatient (CLI) | payer MEDICARE, BC ==
[~2024-07-04] MED LIST changes: +AMIODARONE HCL100 MG PO; +AMOXICILLIN AND1 TA2 PO; +ELIQUIS5 MG PO; +LEVEMIR100 U/M1 SQ; +TRULICITY0.75 MG/0. SC; +WOMENS MULTI VITAMIN PO
[2024-07-04 15:16] LABS: CALCIUM 10.1 mg/dL (8.3-10.5)
== END ==
LOC: LAB 14:53
PROVIDERS: Family Medicine
DX: E11.22 Type 2 diabetes mellitus with diabetic chronic kidney disease (principal); N18.2 Chronic kidney disease, stage 2 (mild); I25.119 Atherosclerotic heart disease of native coronary artery with unspecified angina pectoris; E55.9 Vitamin D deficiency, unspecified

== ENCOUNTER → 2024-07-11 | Outpatient (CLI) | payer MEDICARE, BC ==
[2024-07-11 18:18] LABS: PH-URINE 5.5 (5.0 - 8.0); URINE APPEARANCE CLOUDY (CLEAR); URINE COLOR LIGHT YELLOW (YELLOW); URINE GLUCOSE 2+ (NEGATIVE); URINE PROTEIN(semi-quant) NEGATIVE (NEGATIVE)
[2024-07-11 18:19] LABS: URINE BILIRUBIN NEGATIVE (NEGATIVE); URINE BLOOD 2+ (NEGATIVE); URINE KETONE NEGATIVE (NEGATIVE); URINE LEUKOCYTE ESTERASE 1+ (NEGATIVE); URINE NITRATE NEGATIVE (NEGATIVE); URINE WBC 31-50 /hpf (0-3)
== END ==
LOC: LAB 17:48
PROVIDERS: Family Medicine
DX: R30.0 Dysuria (principal)

== ENCOUNTER → 2024-08-21 | Outpatient (CLI) | payer MEDICARE, BC ==
[2024-08-21 10:20] LABS: URINE APPEARANCE SLIGHTLY CLOUDY (CLEAR); URINE BILIRUBIN NEGATIVE (NEGATIVE); URINE COLOR YELLOW (YELLOW); URINE GLUCOSE 3+ (NEGATIVE); URINE KETONE NEGATIVE (NEGATIVE); URINE PROTEIN(semi-quant) 1+ (NEGATIVE)
[2024-08-21 10:21] LABS: URINE BLOOD TRACE (NEGATIVE); URINE LEUKOCYTE ESTERASE 1+ (NEGATIVE); URINE MUCUS PRESENT (NOT PRESENT); URINE NITRATE NEGATIVE (NEGATIVE); URINE WBC >50 /hpf (0-3)
== END ==
LOC: LAB 09:54
PROVIDERS: Family Medicine
DX: R30.0 Dysuria (principal)

== ENCOUNTER → 2024-09-11 | Outpatient (REF) | payer MEDICARE, BC ==
[2024-09-11 10:05] LABS: PH-URINE 5.5 (5.0 - 8.0); URINE APPEARANCE SLIGHTLY CLOUDY (CLEAR); URINE BILIRUBIN NEGATIVE (NEGATIVE); URINE BLOOD TRACE (NEGATIVE); URINE COLOR ORANGE (YELLOW); URINE GLUCOSE 2+ (NEGATIVE); URINE KETONE TRACE (NEGATIVE); URINE LEUKOCYTE ESTERASE NEGATIVE (NEGATIVE); URINE MUCUS PRESENT (NOT PRESENT); URINE NITRATE POSITIVE (NEGATIVE); URINE PROTEIN(semi-quant) TRACE (NEGATIVE)
== END ==
LOC: LAB 08:17
PROVIDERS: Nurse Practitioner
DX: Z01.89 Encounter for other specified special examinations (principal)

== ENCOUNTER → 2024-11-12 | Outpatient (CLI) | payer MEDICARE, BC ==
[2024-11-12 11:16] LABS: URINE APPEARANCE CLOUDY (CLEAR); URINE BILIRUBIN NEGATIVE (NEGATIVE); URINE BLOOD TRACE-INTACT (NEGATIVE); URINE COLOR YELLOW (YELLOW); URINE GLUCOSE 2+ (NEGATIVE); URINE KETONE NEGATIVE (NEGATIVE); URINE LEUKOCYTE ESTERASE TRACE (NEGATIVE); URINE NITRATE NEGATIVE (NEGATIVE); URINE PROTEIN(semi-quant) NEGATIVE (NEGATIVE); URINE WBC 31-50 /hpf (0-3)
== END ==
LOC: LAB 10:52
PROVIDERS: Family Medicine
DX: N39.0 Urinary tract infection, site not specified (principal)